=== PATIENT | female | born 1965 | race Caucasian/White ===

== ENCOUNTER 2018-11-20 16:41 | Outpatient (CLI) | payer OTHER | END 2018-11-20 16:42 | disposition critical access hospital (66) | LOC: EMS 16:41 | PROVIDERS: ATTEND Surgery | DX: M54.5 Low back pain (principal); V59.9XXA Occupant (driver) (passenger) of pick-up truck or van injured in unspecified traffic accident, initial encounter; Y92.414 Local residential or business street as the place of occurrence of the external cause | CPT/HCPCS: A0425; A0429 ==

== ENCOUNTER 2018-11-20 17:40 | Emergency (ER) | payer OTHER ==
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
[2018-11-20 19:04] VITALS: BP 128/66
== END 2018-11-20 19:10 | disposition home or self-care (01) ==
LOC: ED 17:40
DX: S16.1XXA Strain of muscle, fascia and tendon at neck level, initial encounter (principal); V89.2XXA Person injured in unspecified motor-vehicle accident, traffic, initial encounter
CPT/HCPCS: 72125; 99283